=== PATIENT | female | born 1990 | race Caucasian/White ===

== ENCOUNTER 2025-02-12 14:33 | Emergency (ER) | payer OTHER ==
[2025-02-12 15:13] VITALS: BP 128/82; PULSE 64; RESP 16; TEMP 98.1; BMI 29.4
[2025-02-12] MEDS ORDERED: IBUPROFEN 400 MG TABLET (FP) PO ONE (15:47)
[2025-02-12] MEDS: IBUPROFEN 400 MG TABLET (FP) PO ONE (15:52)
== END 2025-02-12 16:01 | disposition home or self-care (01) ==
LOC: FER 14:33
DX: T25.211A Burn of second degree of right ankle, initial encounter (principal); T25.212A Burn of second degree of left ankle, initial encounter; X12.XXXA Contact with other hot fluids, initial encounter; Y99.0 Civilian activity done for income or pay
CPT/HCPCS: 99283-25